=== PATIENT | male | born 1985 | race Hispanic/Latino ===

== ENCOUNTER 2018-04-25 00:10 | Emergency (ER) | payer BC, OTHER ==
[2018-04-25 00:18] VITALS: RESP 18
--- NOTE | 2018-04-25 00:40 | C.PDOC ---
History Of Present Illness pt was brought in by his family for alcohol abuse, wanting detox. Pt denies any suicidal or homicidal ideation. No f/c/n/v. Time Seen by Provider: 04/25/18 00:40 Chief Complaint (Nursing): Substance Abuse History Per: Patient, Family History/Exam Limitations: no limitations Onset/Duration Of Symptoms: Days Current Symptoms Are (Timing): Still Present Suicide/Self Injury Attempted (Context): None Modifying Factor(s): Alcohol Severity: None Associated Symptoms: denies: Anger, Anxiety Involuntary Hold By: None Additional History Per: Family Past Medical History Reviewed: Historical Data, Nursing Documentation, Vital Signs Vital Signs: Last Vital Signs Temp 97.5 F L 04/25/18 00:15 Pulse 86 04/25/18 00:45 Resp 18 04/25/18 00:45 BP 156/100 H 04/25/18 00:45 Pulse Ox 98 04/25/18 00:45 Family History: States: No Known Family Hx - Social History Hx Alcohol Use: Yes Hx Substance Use: No - Immunization History Hx Tetanus Toxoid Vaccination: No Hx Influenza Vaccination: No Hx Pneumococcal Vaccination: No Review Of Systems Constitutional: Negative for: Fever, Chills Cardiovascular: Negative for: Chest Pain Respiratory: Negative for: Shortness of Breath Gastrointestinal: Negative for: Abdominal Pain Neurological: Negative for: Weakness Psych: Negative for: Anxiety Physical Exam - Physical Exam Appears: Non-toxic, No Acute Distress ED Course And Treatment O2 Sat by Pulse Oximetry: 97 Pulse Ox Interpretation: Normal Progress Note: pt was told that there are no detox beds available,. Was given numbers for detox places and was talked to by the beet worker. pt refuses a physical exam Disposition Counseled Patient/Family Regarding: Studies Performed, Diagnosis - Disposition Disposition: HOME/ ROUTINE Disposition Time: 00:40 Condition: FAIR Additional Instructions: Please call the numbers provided for detox spots Instructions: Alcohol Abuse and Alcoholism (DC) Forms: [facility] (Faroese) - Clinical Impression Clinical Impression: Alcohol abuse
[2018-04-25 01:08] VITALS: O2SAT 97
[2018-04-25 01:20] VITALS: BP 146/92; PULSE 76; TEMP 98.2
== END 2018-04-25 01:19 | disposition home or self-care (01) ==
LOC: SUPCPDRO 00:10 → C.ER 00:10
DX: F10.10 Alcohol abuse, uncomplicated (principal)